=== PATIENT | female | born 2000 | race American Indian/Alaskan Native ===

== ENCOUNTER 2022-05-17 18:11 | Emergency (ER) | payer MEDICAID ==
[2022-05-17 19:03] VITALS: BP 106/61
== END 2022-05-18 20:05 | disposition left against medical advice (07) ==
LOC: ED 18:11
DX: R22.30 Localized swelling, mass and lump, unspecified upper limb (principal); Z53.21 Procedure and treatment not carried out due to patient leaving prior to being seen by health care provider